=== PATIENT | male | born 1970 | race Caucasian/White ===

== ENCOUNTER 2018-11-22 07:09 | Day surgery (SDC) | payer BC ==
[~2018-11-22 07:09] MED LIST: CEFAZOLIN 2 Gram 2 GM/50 ML BAG IVPB ONE
[2018-11-22] MEDS ORDERED: ONDANSETRON HCL IV 4 MG/2 ML VIAL IVP ONE (07:10)
[2018-11-22] MEDS ORDERED: FAMOTIDINE 20MG TABLET PO ONE (07:10)
[2018-11-22] MEDS ORDERED: SEVOFLURANE 250 ML INH ONE (07:10)
[2018-11-22] MEDS ORDERED: MECLIZINE 25 MG TABLET PO ONE (07:10)
[2018-11-22] MEDS ORDERED: BUPIVACAINE LIPOSOME/PF 133MG/10ML VIAL IV ONE (07:10)
[2018-11-22] MEDS ORDERED: PROPOFOL 10 MG/ML VIAL IV ONE (07:10)
[2018-11-22] MEDS ORDERED: BUPIVACAINE 0.25% MPF 30ML VIAL IVP ONE (07:10)
[2018-11-22] MEDS ORDERED: BUPIVACAINE 0.5% W/EPI MPF 30 ML VIAL IVP ONE (07:10)
[2018-11-22] MEDS ORDERED: METHYLPREDNISOLONE 40MG/VIAL IM ONE (07:10)
[2018-11-22] MEDS ORDERED: LIDOCAINE 2% MDV (20MG/ML) 20ML VIAL IV ONE (07:10)
[2018-11-22] MEDS ORDERED: DEXAMETHASONE 4 MG/ML 1ML VIAL IVP ONE (07:10)
[2018-11-22] MEDS ORDERED: MORPHINE SULFATE PF 10MG/10ML VIAL IV ONE (07:10)
[2018-11-22] MEDS ORDERED: METOCLOPRAMIDE 10 MG TABLET PO ONE (07:10)
[2018-11-22] MEDS ORDERED: MIDAZOLAM HCL 2MG/2ML VIAL IV ONE (07:10)
[2018-11-22] MEDS ORDERED: KETOROLAC 30 MG/ML VIAL IVP ONE (07:10)
[2018-11-22] MEDS ORDERED: DIPHENHYDRAMINE HCL 50 MG/ML VIAL IVP ONE (07:10)
[2018-11-22] MEDS ORDERED: FENTANYL PF 100MCG/2ML VIAL IV ONE (07:10)
--- NOTE | 2018-11-23 09:20 | Operative Note ---
DATE OF SURGERY: 11/22/2018 PREOPERATIVE DIAGNOSIS: Impingement left shoulder. POSTOPERATIVE DIAGNOSES: 1. Profound external impingement left shoulder. 2. Complex superior glenohumeral labral tear. 3. Arthrosis left distal clavicle. OPERATION: 1. Left shoulder arthroscopy with intraarticular debridement. 2. Left shoulder open acromioplasty, CA ligament resection, subacromial bursectomy. 3. Left shoulder distal clavicle resection. Staff Surgeon: Remington Madsen MD Anesthesia: General. Preparation: Chloraprep. Individual Considerations: None. PROCEDURE: The patient was taken to the operating room, placed supine on the operating room table. He had a successful induction with general anesthetic. He was then placed in a semi-seated beach chair position. His left arm and shoulder were prepped and draped in the usual fashion. Examination under anesthesia showed no instability and full motion. The patient had a posterior portal identified for arthroscopy. Skin was infiltrated with 0.5% Marcaine with epinephrine prior. An 18-gauge spinal needle was easily placed in the joint, and the joint was inflated with normal saline with a 60-mL syringe. A stab wound was made, and a blunt-tipped trocar for the scope was placed in the joint. The joint was inflated with normal saline. An anterior accessory portal was then made just inferior to the intact long head of the biceps tendon in a retrograde fashion with a Wissinger sapna, and the joint was irrigated out. The patient had fraying of the superior labrum, which was debrided with a shaver. Long head was intact. Glenohumeral joint was intact. Subscap was normal. Undersurface of the rotator cuff had some areas of contusion but was grossly intact. No loose bodies were seen in the inferior pouch. After irrigation, portals were closed with liz, and the arthroscopy instruments were removed. The patient had an anterior approach to the subacromial space and distal clavicle. Skin was again infiltrated with 0.5% Marcaine with epinephrine prior. Sharp dissection carried down through skin and subcutaneous tissues. Small veins were coagulated with a Bovie. An anterior deltoid interval was made. Care was taken not to split the deltoid more than about 4 cm distal to the anterior tip of the acromion to prevent injury to the axillary nerve. Once in the subacromial space, there was a very tight subacromial space with a thick bursa, anterior spurs, and spurs to the AC joint. The deltoid was then taken subperiosteally off the anterior aspect of the acromion, over the top of the intact CA ligament, and off the anterior aspect of the degenerated distal clavicle. CA ligament was resected with a Bovie. Distal clavicle was resected with an oscillating saw taking about 1 cm. The patient had downsloping acromion spurs extending to the AC joint, and anterior acromioplasty was performed taking slightly less than a centimeter and tapering towards posteromedially to include the spurs at the AC joint. The undersurface was then smoothed off with a rasp. A very thick bursa was debrided out. I now had a good look at the rotator cuff which was otherwise intact. There were some areas at the supraspinatus insertion which were flat and contused but nothing gross to repair. I put the shoulder now through a full range of motion to ensure no further impingement. After irrigation, the deltoid was reattached to the remaining acromion with multiple interrupted #2 Vicryl going directly through the bony acromion. The periosteal cup of the distal clavicle was closed with running #2 Vicryl. Anterior deltoid interval was closed with running #1 Vicryl. Subcu was closed with 2-0 plus Vicryl and skin was closed with liz. I did place an 18-gauge spinal needle into the subacromial space and injected it with about 20 mL of 0.5% Marcaine with epinephrine along with 40 mg of Depo-Medrol and 4 mg of morphine. A sterile bulky compressive dressing and sling were applied. The patient tolerated the procedure well. Needle and sponge counts were correct. Estimated blood loss was minimal. He was taken back to recovery in good condition. There were no complications. NAVARRO
== END 2018-11-22 11:26 | disposition home or self-care (01) ==
LOC: SUR 07:09
PROVIDERS: ATTEND Orthopaedic Surgery
DX: S43.432A Superior glenoid labrum lesion of left shoulder, initial encounter (principal); M19.012 Primary osteoarthritis, left shoulder; I10 Essential (primary) hypertension; K21.9 Gastro-esophageal reflux disease without esophagitis; G47.33 Obstructive sleep apnea (adult) (pediatric); E11.9 Type 2 diabetes mellitus without complications
CPT/HCPCS: 23130; 29822; 23120; 01630; 64415; J1885; J2405; J3010; J0690; C9290; 76942; J1030; J1200